=== PATIENT | female | born 1975 | race American Indian/Alaskan Native ===

== ENCOUNTER 2016-11-20 11:27 | Outpatient (CLI) | payer OTHER ==
--- NOTE | 2016-11-20 14:00 | Ultrasound Report ---
Pelvic ultrasound: Menorrhagia. Endovaginal and transabdominal imaging demonstrates an anteverted uterus measuring 10.7 x 10.2 x 14.3 cm. There are least 3 hypoechogenic fundal masses measuring 4.5, 5.1, and 6 cm respectively in their largest dimensions. The visualized short segment of endometrium has a width of 14 mm. I cannot unequivocally identify proximity between all of the masses and the endometrium. There is a 1 cm nabothian cysts in the cervix. The right ovary measures 3.6 cm and the left 3.7 cm. Multiple follicles are identified in the right ovary. The left is somewhat less well evaluated. No free fluid. Impression: Enlarged multi-fibroid uterus.
== END 2016-11-20 11:28 | disposition home or self-care (01) ==
LOC: SPVWC 11:27
PROVIDERS: ATTEND Family Medicine
DX: D25.9 Leiomyoma of uterus, unspecified (principal); N88.8 Other specified noninflammatory disorders of cervix uteri
CPT/HCPCS: 76830; 76856